=== PATIENT | female | born 1955 | race Hispanic/Latino ===

== ENCOUNTER 2016-12-17 17:48 | Observation (INO) | payer OTHER ==
[2016-12-17 17:51] VITALS: BMI 24.3
--- NOTE | 2016-12-17 18:06 | ED PDOC ---
Arrival/HPI - General Chief Complaint: Shortness Of Breath Time Seen by Provider: 12/17/16 17:52 Historian: Patient, EMS - History of Present Illness Narrative History of Present Illness (Text): 12/17/16 18:01 61 year old female with a past medical history that includes hypertension, hypothyroidsim, and asthma presents to the emergency department with left sided chest pain associated with shortness of breath and nausea while standing at the bus stop prior to arrival. EMS reports patient told them she was dehydrated after standing at the bus stop for an hour and took one treatment of her inhaler. Patient also reports dizziness and a "weird" sensation in her left arm. Denies cough, fever, urinary incontinence, leg pain, or other symptoms. PMD: Dr. Lorie Mckinnye Dehydration Plant Operator: Dr. Medhat Snow Neurologist: Dr. Evelyn Welch 12/17/16 18:51 After interviewing the patient again, she states that her chest pain has been there for some time now, she thinks maybe Sunday. She also states she has a left sided headache and that the arm sensation is like pins and needles. She also added that she has the same pins and needles sensation to her left leg. No weakness. No trouble speaking or visual changes. She has seen Dr. Welch, neurology, recently since these symptoms started and she got an MRI. She doesn' t know the results yet. Time/Duration: Prior to Arrival Symptom Onset: Sudden Symptom Course: Unchanged Modifying Factors (Text): None Context: Standing Associated Symptoms (Text): Nausea, shortness of breath, dizziness, left arm weird sensation Past Medical History - Provider Review Nursing Documentation Reviewed: Yes - Infectious Disease Hx of Infectious Diseases: None - Reproductive Menopause: Yes - Cardiac Hx Hypertension: Yes - Pulmonary Hx Asthma: Yes - Endocrine/Metabolic Hx Hypothyroidism: Yes - Hematological/Oncological Other/Comment: thrombocytopenia - Psychiatric Hx Substance Use: No - Anesthesia Hx Anesthesia: No Hx Anesthesia Reactions: No Hx Malignant Hyperthermia: No Family/Social History - Physician Review Nursing Documentation Reviewed: Yes Family/Social History: Unknown Family HX Smoking Status: Never Smoked Hx Alcohol Use: No Hx Substance Use: No Allergies/Home Meds Allergies/Adverse Reactions: Allergies aspirin Adverse Reaction (Verified 12/17/16 18:01) RASH bleeding codeine Adverse Reaction (Verified 12/17/16 17:55) RASH iodine Adverse Reaction (Verified 12/17/16 17:57) RASH latex Adverse Reaction (Verified 12/17/16 18:01) SWELLING shellfish derived Adverse Reaction (Verified 12/17/16 17:57) RASH tetracycline Adverse Reaction (Verified 12/17/16 17:57) RASH avolox Adverse Reaction (Uncoded 12/17/16 17:56) RASH Review of Systems - Physician Review All systems were reviewed & negative as marked: Yes - Review of Systems Eyes: absent: Vision Changes Respiratory: SOB Cardiovascular: Chest Pain (left sided). absent: Calf Pain Gastrointestinal: Nausea Neurological: Dizziness, Other (Left arm "weird" sensation) Physical Exam Vital Signs Reviewed: Yes Vital Signs Temp Pulse Resp BP Pulse Ox 12/17/16 19:35 70 18 119/74 97 12/17/16 18:47 62 14 119/74 100 12/17/16 18:07 80 18 127/69 98 12/17/16 18:02 99.9 F H 71 20 115/84 100 12/17/16 18:00 18 Temperature: Afebrile Blood Pressure: Normal Pulse: Regular Respiratory Rate: Normal Appearance: Positive for: Well-Appearing, Non-Toxic, Comfortable Pain Distress: None Mental Status: Positive for: Alert and Oriented X 3 - Systems Exam Head: Present: Atraumatic, Normocephalic Pupils: Present: PERRL Extroacular Muscles: Present: EOMI Conjunctiva: Present: Normal Mouth: Present: Moist Mucous Membranes Neck: Present: Normal Range of Motion Respiratory/Chest: Present: Clear to Auscultation, Good Air Exchange, Tender to Palpation (left chest wall; no rash or ecchymosis). No: Respiratory Distress, Accessory Muscle Use Cardiovascular: Present: Regular Rate and Rhythm, Normal S1, S2. No: Murmurs Abdomen: Present: Normal Bowel Sounds. No: Tenderness, Distention, Peritoneal Signs Back: Present: Normal Inspection Upper Extremity: Present: Normal Inspection. No: Cyanosis, Edema Lower Extremity: Present: Normal Inspection. No: Edema Neurological: Present: GCS=15, CN II-XII Intact, Speech Normal, Motor Func Grossly Intact, Normal Cerebellar Funct, Norm Deep Tendon Reflexes, Memory Normal. No: Normal Sensory Function (left arm and leg decreased sensation) Skin: Present: Warm, Dry, Normal Color. No: Rashes Psychiatric: Present: Alert, Oriented x 3, Normal Insight, Normal Concentration Medical Decision Making ED Course and Treatment: Impression: 61 year old female with a past medical history that includes hypertension, hypothyroidsim, and asthma presents to the emergency department with left sided headache, left chest pain associated with shortness of breath, left arm/leg tingling sensation and nausea Differential Diagnosis included but are not limited to: TIA vs CVA, Chest pain r /o ACS, Anxiety, Dehydration Plan: -- EKG, CXR -- Nitroglycerin -- Labs -- Reassess and disposition Progress Notes: 12/17/16 19:16 Nitroglyerin did not help her symptoms. She says with aspirin she gets internal bleeding. Morphine IV ordered for pain. CT Head was added. Symptoms have been presents since Sunday and perhaps longer because patient is unsure of symptom on set. - Lab Interpretations Lab Results: 12/17/16 17:45 12/17/16 17:45 Lab Results 12/17/16 18:16: D-Dimer, Quantitative 0.25 12/17/16 18:05: POC Glucose (mg/dL) 193 H 12/17/16 17:45: WBC 9.1, RBC 4.69, Hgb 13.7, Hct 38.9, MCV 82.9, MCH 29.2, MCHC 35.2, RDW 13.1, Plt Count 197, MPV 10.9, Gran % 68.9 H, Lymph % (Auto) 25.3, [place] % (Auto) 5.3, Eos % (Auto) 0.3 L, Baso % (Auto) 0.2, Gran # 6.27, Lymph # 2.3, [place] # 0.5, Eos # 0.0, Baso # 0.02, PT 11.0, INR 1.02, APTT 23.2 L, Sodium 131 L, Potassium 3.4 L, Chloride 93 L, Carbon Dioxide 23, Anion Gap 18, BUN 22 H , Creatinine 1.2, Est GFR ( Amer) 55, Est GFR (Non-Af Amer) 46, Random Glucose 162 H, Calcium 9.6, Magnesium 1.8, Total Bilirubin 0.7, AST 19, ALT 32, Alkaline Phosphatase 100, Lactate Dehydrogenase 444, Total Creatine Kinase 86, Troponin I < 0.01, NT-Pro-B Natriuret Pep 78.9, Total Protein 8.1, Albumin 4.3, Globulin 3.9, Albumin/Globulin Ratio 1.1 - RAD Interpretation Narrative RAD Interpretations (Text): EXAM: CT Head Without Intravenous Contrast FINDINGS: Brain: Periventricular hypoattenuation is likely related to small vessel disease. No hemorrhage. No edema. Ventricles: Unremarkable. No ventriculomegaly. Bones/joints: Unremarkable. No acute fracture. Soft tissues: Unremarkable. Sinuses: partial opacification of the right maxillary sinus and ethmoid sinus. Mastoid air cells: Unremarkable as visualized. No mastoid effusion. IMPRESSION: No acute findings. Dictated and Authenticated by: Antonia Murrell MD 12/17/2016 7:16 PM Eastern Time ([place] & [place]) Radiology Orders: 12/17/16 17:58 CHEST PORTABLE [RAD] Stat 12/17/16 18:23 HEAD W/O CONTRAST [CT] Stat Financial Legal Assistant: Linux Server Engineer - EKG Interpretation EKG Interpretation (Text): EKG shows NSR at 78 BPM with PAC's; No prior for comparison Interpreted by ED Physician: Yes Type: 12 lead EKG - Medication Orders Current Medication Orders: Discontinued Medications Morphine Sulfate (Morphine) 4 mg IVP STAT STA Stop: 12/17/16 18:24 Last Admin: 12/17/16 18:38 Dose: 4 MG MAR Pain Assessment Document 12/17/16 18:38 SRE (Rec: 12/17/16 18:38 SRE [id number]) Pain Reassessment Is this a pain reassessment? Yes Sleep Is patient sleeping during reassessment? No Presence of Pain Presence of Pain Yes Pain Scale Used Pain Scale Used Numeric Location Pain Location Body Site Chest Description Description Constant IVP Administration Document 12/17/16 18:38 SRE (Rec: 12/17/16 18:38 SRE [id number]) Charges for Administration # of IVP Administrations 1 Nitroglycerin (Nitrostat Sl Tab) 0.4 mg SL STAT STA Stop: 12/17/16 17:59 Last Admin: 12/17/16 18:05 Dose: 0.4 MG Potassium Chloride (K-Dur 20 Meq Er Tab) 40 meq PO STAT STA Stop: 12/17/16 18:41 Last Admin: 12/17/16 19:40 Dose: 40 MEQ NIHSS Scale ([place]) Time Performed: 17:52 - How Severe is the Stoke Baseline Level of Consciousness: 0=Alert LOC to Questions: 0=Both comments correct LOC to commands: 0=Obeys both correctly Best Gaze: 0=Normal Visual: 0=No visual loss Facial: 0=Normal Motor Arm - Left: 0=No drift Motor Arm - Right: 0=No drift Motor Leg - Left: 0=No drift Motor Leg - Right: 0=No drift Limb Ataxia: 0=Absent Sensory: 1=Mild to moderate loss Best Language: 0=No aphasia Dysarthia: 0=Normal articulation Extinction & Inattention (Neglect): 0=Normal, no object Score: 1 Risk Level: Minor Stroke Risk rTPA Inclusion/Exclusion - Refusal of Treatment Patient Refused Treatment: No - Inclusion Criteria for Altepase Patient is 18 years or Older: Yes The Clinical Diagnosis of Ischemic Stroke That is Causing a Potentially Disabling Neurological Deficit: Yes Time of Onset is Well Established to be Less Than 270 Minute Before Treatment Would Begin: No Risk/Benefit Discussed With Patient/Family Member Present: No - Scribe Statement The provider has reviewed the documentation as recorded by the Berenice Valentine Provider Scribe Attestation: All medical record entries made by the Berenice were at my direction and personally dictated by me. I have reviewed the chart and agree that the record accurately reflects my personal performance of the history, physical exam, medical decision making, and the department course for this patient. I have also personally directed, reviewed, and agree with the discharge instructions and disposition. Disposition/Present on Arrival - Present on Arrival Any Indicators Present on Arrival: No History of DVT/PE: No History of Uncontrolled Diabetes: No Urinary Catheter: No History of Decub. Ulcer: No History Surgical Site Infection Following: None - Disposition Have Diagnosis and Disposition been Completed?: Yes Diagnosis: Chest pain, Numbness and tingling sensation of skin Disposition Time: 20:01 Patient Plan: Observation Condition: FAIR
[2016-12-17 18:13] LABS: ADD MANUAL DIFF? NO
[2016-12-17 18:16] LABS: BASO # 0.02 K/mm3 (0.0-2.0); BASO % 0.2 % (0.0-3.0); EOS % 0.3 % (1.5-5.0); GRAN # 6.27 (1.4-6.5); GRAN % 68.9 % (50.0-68.0); HEMATOCRIT 38.9 % (36.0-48.0); LYMPH # 2.3 (1.2-3.4); LYMPH % 25.3 % (22.0-35.0); MEAN CELL VOLUME 82.9 fL (80.0-105.0); MEAN CORPUSCULAR HEMOGLOBIN 29.2 pg (25.0-35.0); MEAN CORPUSCULAR HGB CONC 35.2 g/dl (31.0-37.0); MEAN PLATELET VOLUME 10.9 fl (7.0-11.0); MONO # 0.5 (0.1-0.6); MONO % 5.3 % (1.0-6.0); PLATELET COUNT 197 10^3/uL (120.0-450.0); RED CELL DISTRIBUTION WIDTH 13.1 % (11.5-14.5); WHITE BLOOD COUNT 9.1 10^3/ul (4.5-11.0)
[2016-12-17] MEDS ORDERED: Morphine 4 mg/ml ISec IVP STA (18:23)
[2016-12-17 18:25] LABS: ALB/GLOB RATIO 1.1 (1.1-1.8); ALKALINE PHOSPHATASE 100 U/L (38-133); ALT/SGPT 32 U/L (7-56); AST/SGOT 19 U/L (15-39); BILIRUBIN,TOTAL 0.7 mg/dL (0.2-1.3); BLOOD UREA NITROGEN 22 mg/dL (7-21); CALCIUM 9.6 mg/dL (8.4-10.5); CARBON DIOXIDE 23 mmol/L (21-33); CHLORIDE 93 mmol/L (98-107); GFR AFRICAN-AMERICAN 55; GLUCOSE,RANDOM 162 mg/dL (70-110); MAGNESIUM 1.8 mg/dL (1.7-2.2); POTASSIUM 3.4 mmol/L (3.6-5.0); SODIUM 131 mmol/L (132-148); TOTAL PROTEIN 8.1 g/dL (5.8-8.3)
[2016-12-17 18:28] LABS: INR 1.02 (0.93-1.08); PARTIAL THROMBOPLASTIN TIME 23.2 Seconds (23.7-30.8)
[2016-12-17 18:39] LABS: TROPONIN I < 0.01 ng/mL
[2016-12-17] MEDS ORDERED: Potassium Chloride 20 mEq ER Tab PO STA (18:40)
[2016-12-17 20:26] LABS: URINE BILIRUBIN NEGATIVE (NEGATIVE); URINE BLOOD SMALL (NEGATIVE); URINE GLUCOSE (UA) NEGATIVE (NEGATIVE); URINE KETONE NEGATIVE (NEGATIVE); URINE LEUKOCYTE ESTERASE LARGE Leu/uL (NEGATIVE); URINE PROTEIN NEGATIVE mg/dL (<30 mg/dL); URINE UROBILINOGEN 0.2 E.U./dL (<1 E.U./dL)
[2016-12-17 20:28] LABS: URINE APPEARANCE CLOUDY (CLEAR); URINE COLOR YELLOW (YELLOW)
[2016-12-17 20:37] LABS: URINE RBC 0 - 2 /hpf (0-2)
[2016-12-17 20:38] LABS: URINE BACTERIA MANY (NEG); URINE WBC TNTC /hpf (0-6)
[2016-12-17] MEDS ORDERED: Albuterol-Ipratrop 3 mg / 0.5 (3 ml) UD IH PRN (20:52)
--- NOTE | 2016-12-17 21:10 | CP.PCM.HP ---
<Stephanie Hein - Last Filed: 12/17/16 22:33> History of Present Illness - History of Present Illness History of Present Illness: 61 F with PMHx of HTN, hypothyroidism, asthma, vertigo, levoscoliosis, and fibroids presents with complaints of left sided chest pains, left sided headache and left sided paresthesia. Pt is a poor historian. Pt states that this morning while showering, she started to feel chest tightness - similair to when she has asthma attacks, worsening of her left sided headache, left sided paresthesia and associated sob and dizziness. However, after taking her nebulizer treatments her symptoms slowly improved. Pt then stated that this evening at approx 5 pm, she expereinced another episode of similar symptoms while waiting for the bus outside however with greater intensity than this morning, at which point she called the ambulance and arrived to [facility]. Pt states that for the past month she has been experiencing a left sided headache that fluctuates in intensity, however is constant. Pt was recently seen by her neurologist for which an MRI was completed on 12/13/16, pending results. Pt also states that she has been experiencing her chest pain for the past couple of weeks, shifting in position and pressing on the chest wall exacerbates symptoms. She denied any trauma. She has recently been flying back and forth from [place], last trip in the middle of november. At the time of examination pt denied fever, chills, blurry vision, diplopia, weakness, dizziness, sob, palpitations, abdominal pains, n/v/d/c or urinary symptoms. Pt admitted to left sided headache and left sided chest pain, however with a lesser intensity than earlier. PMHx: HTN, hypothyroidism, asthma, vertigo, levoscoliosis, and fibroids PSHx: Hysterectomy SHx: Denied tobacco/etoh/illicit drug abuse, lives in [facility], menopause Family Hx: Mother: Colon ca, sister: stroke father: Alzheimer Meds: Ventolin, amlodipine, telesartan, synthroid, Allergies: asa, codeine, iodine, shellfish, tetracycline, avelox PMD: Lorie Núñez Senior Linux Administrator: Dr. Medhat Snow Neurologist: Dr. Evelyn Welch Patternmaker Apprentice Wood: Dr. Nash Present on Admission - Present on Admission Any Indicators Present on Admission: No History of DVT/PE: No History of Uncontrolled Diabetes: No Urinary Catheter: No Decubitus Ulcer Present: No Review of Systems - Review of Systems Review of Systems: as per HPI otherwise negative Past Patient History - Infectious Disease Hx of Infectious Diseases: None - Past Social History Smoking Status: Never Smoked - CARDIAC Hx Hypertension: Yes - PULMONARY Hx Asthma: Yes - ENDOCRINE/METABOLIC Hx Hypothyroidism: Yes - HEMATOLOGICAL/ONCOLOGICAL Other/Comment: thrombocytopenia - PSYCHIATRIC Hx Substance Use: No - SURGICAL HISTORY Hx Surgeries: No Hx Hysterectomy: Yes - ANESTHESIA Hx Anesthesia: No Hx Anesthesia Reactions: No Hx Malignant Hyperthermia: No Meds Allergies/Adverse Reactions: Allergies Allergy/AdvReac Type Severity Reaction Status Date / Time aspirin AdvReac RASH Verified 12/17/16 18:01 codeine AdvReac RASH Verified 12/17/16 17:55 iodine AdvReac RASH Verified 12/17/16 17:57 latex AdvReac SWELLING Verified 12/17/16 18:01 shellfish derived AdvReac RASH Verified 12/17/16 17:57 tetracycline AdvReac RASH Verified 12/17/16 17:57 avolox AdvReac RASH Uncoded 12/17/16 17:56 Physical Exam - Constitutional Appears: Well, No Acute Distress - Head Exam Head Exam: ATRAUMATIC - Eye Exam Eye Exam: EOMI, Normal appearance, PERRL Pupil Exam: NORMAL ACCOMODATION, PERRL - ENT Exam ENT Exam: Mucous Membranes Moist, Normal Exam - Neck Exam Neck exam: Positive for: Normal Inspection - Respiratory Exam Respiratory Exam: Chest Wall Tenderness (left sided), Clear to Auscultation Bilateral, NORMAL BREATHING PATTERN - Cardiovascular Exam Cardiovascular Exam: REGULAR RHYTHM, +S1, +S2 - GI/Abdominal Exam GI & Abdominal Exam: Normal Bowel Sounds, Soft, Tenderness (suprapubic) - Extremities Exam Extremities exam: Positive for: normal inspection, pedal pulses present - Back Exam Back exam: NORMAL INSPECTION - Neurological Exam Neurological exam: Alert, CN II-XII Intact, Normal Gait, Oriented x3, Reflexes Normal - Psychiatric Exam Psychiatric exam: Normal Affect, Normal Mood - Skin Skin Exam: Dry, Intact, Normal Color, Warm Results - Vital Signs Recent Vital Signs: Last Vital Signs Temp 99.9 F H 12/17/16 18:02 Pulse 70 12/17/16 19:35 Resp 18 12/17/16 19:35 BP 119/74 12/17/16 19:35 Pulse Ox 97 12/17/16 19:35 - Labs Result Diagrams: 12/17/16 17:45 12/17/16 17:45 Labs: Laboratory Results - last 24 hr 12/17/16 12/17/16 12/17/16 17:45 18:05 18:16 WBC 9.1 RBC 4.69 Hgb 13.7 Hct 38.9 MCV 82.9 MCH 29.2 MCHC 35.2 RDW 13.1 Plt Count 197 MPV 10.9 Gran % 68.9 H Lymph % (Auto) 25.3 [place] % (Auto) 5.3 Eos % (Auto) 0.3 L Baso % (Auto) 0.2 Gran # 6.27 Lymph # 2.3 [place] # 0.5 Eos # 0.0 Baso # 0.02 PT 11.0 INR 1.02 APTT 23.2 L D-Dimer, Quantitative 0.25 Sodium 131 L Potassium 3.4 L Chloride 93 L Carbon Dioxide 23 Anion Gap 18 BUN 22 H Creatinine 1.2 Est GFR ( Amer) 55 Est GFR (Non-Af Amer) 46 POC Glucose (mg/dL) 193 H Random Glucose 162 H Calcium 9.6 Magnesium 1.8 Total Bilirubin 0.7 AST 19 ALT 32 Alkaline Phosphatase 100 Lactate Dehydrogenase 444 Total Creatine Kinase 86 Troponin I < 0.01 NT-Pro-B Natriuret Pep 78.9 Total Protein 8.1 Albumin 4.3 Globulin 3.9 Albumin/Globulin Ratio 1.1 Urine Color Urine Appearance Urine pH Ur Specific [place] Urine Protein Urine Glucose (UA) Urine Ketones Urine Blood Urine Nitrate Urine Bilirubin Urine Urobilinogen Ur Leukocyte Esterase Urine RBC Urine WBC Ur Epithelial Cells Urine Bacteria 12/17/16 20:10 WBC RBC Hgb Hct MCV MCH MCHC RDW Plt Count MPV Gran % Lymph % (Auto) [place] % (Auto) Eos % (Auto) Baso % (Auto) Gran # Lymph # [place] # Eos # Baso # PT INR APTT D-Dimer, Quantitative Sodium Potassium Chloride Carbon Dioxide Anion Gap BUN Creatinine Est GFR ( Amer) Est GFR (Non-Af Amer) POC Glucose (mg/dL) Random Glucose Calcium Magnesium Total Bilirubin AST ALT Alkaline Phosphatase Lactate Dehydrogenase Total Creatine Kinase Troponin I NT-Pro-B Natriuret Pep Total Protein Albumin Globulin Albumin/Globulin Ratio Urine Color Yellow Urine Appearance Cloudy Urine pH 6.0 Ur Specific [place] 1.025 Urine Protein Negative Urine Glucose (UA) Negative Urine Ketones Negative Urine Blood Small H Urine Nitrate Positive H Urine Bilirubin Negative Urine Urobilinogen 0.2 Ur Leukocyte Esterase Large H Urine RBC 0 - 2 Urine WBC Tntc Ur Epithelial Cells 3 - 4 Urine Bacteria Many Assessment & Plan - Assessment and Plan (Free Text) Assessment: 61 F with PMHx hypothyroidism, HTN, and asthma presenting with complaints of left sided paresthesias, left sided headache, left sided chest pains. Admitted to tele obs to r/o acs vs tia vs cva. 1. Left sided chest pain - r/o acs - Trop negative x1, EKG: NSR w/ PACs, serial trops and serial EKGs - TTP, Rib Xray - nitro in ED without relief, asa allergy, morphine improved symptom intensity - Cardiology Consulted, Dr. Zambrano 2. Left sided Gan/Paresthesia - no neurological deficits - MRI 12/13/16, fu results - CTH negative - Neurology consulted, Dr. Connors - Neurocheck q4 3. Asthma - Currently stable - Continue home meds - Duonebs q6 prn - no wheezing on exam 4. UTI - UCx pending - Bactrim - Continue to monitor 5. HTN - Currently stable - continue home meds (norvasc 5mg BID, Telesartan 80mg Daily?) - continue to monitor 6. Hypothyroidism - TSH - Continue home meds (synthroid 88mcg?) 7. GI DVT ppx seen reviewed and discussed with attending <Onur Singh - Last Filed: 12/18/16 04:21> Results - Vital Signs Recent Vital Signs: Last Vital Signs Temp 98 F 12/18/16 00:01 Pulse 53 L 12/18/16 02:00 Resp 18 12/18/16 00:01 BP 143/87 12/18/16 00:01 Pulse Ox 98 12/18/16 00:01 - Labs Result Diagrams: 12/17/16 17:45 12/17/16 17:45 Labs: Laboratory Results - last 24 hr 12/17/16 12/18/16 12/18/16 20:10 00:25 02:19 POC Glucose (mg/dL) 110 Troponin I < 0.01 Urine Color Yellow Urine Appearance Cloudy Urine pH 6.0 Ur Specific [place] 1.025 Urine Protein Negative Urine Glucose (UA) Negative Urine Ketones Negative Urine Blood Small H Urine Nitrate Positive H Urine Bilirubin Negative Urine Urobilinogen 0.2 Ur Leukocyte Esterase Large H Urine RBC 0 - 2 Urine WBC Tntc Ur Epithelial Cells 3 - 4 Urine Bacteria Many Attending/Attestation - Attestation I have personally seen and examined this patient.: Yes I have fully participated in the care of the patient.: Yes I have reviewed all pertinent clinical information: Yes Notes (Text): 12/18/16 04:20 Patient was seen with bio medical technician when she was in bed # 4 in the ER. Agree with history, physical examination, assessment and plan. Pertinent medical record was reviewed.
[2016-12-17] MEDS: Sodium Chloride 0.9% 1,000 ML IV SCH (21:27)
[2016-12-17] MEDS ORDERED: Oxycodone/Acetaminophen 5/325 mg Tab PO PRN (21:29)
[2016-12-17] MEDS ORDERED: Tmp-Smz 800 mg-160 mg DS Tab PO SCH (22:00)
[2016-12-18 06:36] LABS: ADD MANUAL DIFF? NO
[2016-12-18 06:54] LABS: BASO # 0.02 K/mm3 (0.0-2.0); BASO % 0.3 % (0.0-3.0); EOS # 0.1 (0.0-0.7); EOS % 1.6 % (1.5-5.0); GRAN # 3.53 (1.4-6.5); GRAN % 61.6 % (50.0-68.0); HEMATOCRIT 36.3 % (36.0-48.0); LYMPH # 1.5 (1.2-3.4); LYMPH % 25.5 % (22.0-35.0); MEAN CORPUSCULAR HEMOGLOBIN 28.9 pg (25.0-35.0); MEAN CORPUSCULAR HGB CONC 34.4 g/dl (31.0-37.0); MEAN PLATELET VOLUME 11.2 fl (7.0-11.0); MONO # 0.6 (0.1-0.6); PLATELET COUNT 182 10^3/uL (120.0-450.0); RED CELL DISTRIBUTION WIDTH 13.2 % (11.5-14.5); WHITE BLOOD COUNT 5.7 10^3/ul (4.5-11.0)
[2016-12-18 06:55] LABS: ALB/GLOB RATIO 1.1 (1.1-1.8); ALKALINE PHOSPHATASE 89 U/L (38-133); ALT/SGPT 27 U/L (7-56); AST/SGOT 18 U/L (15-39); BILIRUBIN,TOTAL 0.7 mg/dL (0.2-1.3); BLOOD UREA NITROGEN 13 mg/dL (7-21); CALCIUM 8.8 mg/dL (8.4-10.5); CARBON DIOXIDE 27 mmol/L (21-33); CHLORIDE 102 mmol/L (98-107); CHOLESTEROL 195 mg/dL (130-200); GFR AFRICAN-AMERICAN > 60; GLUCOSE,RANDOM 88 mg/dL (70-110); POTASSIUM 3.7 mmol/L (3.6-5.0); SODIUM 135 mmol/L (132-148)
[2016-12-18 07:04] LABS: TROPONIN I < 0.01 ng/mL
--- NOTE | 2016-12-18 07:38 | RAD ---
HISTORY: chest pain COMPARISON: No prior study available for comparison. FINDINGS: LUNGS: No active pulmonary disease. PLEURA: No significant pleural effusion identified, no pneumothorax apparent. CARDIOVASCULAR: Normal. OSSEOUS STRUCTURES: There appears be mild dextroscoliosis centered in the mid thoracic region VISUALIZED UPPER ABDOMEN: Normal. OTHER FINDINGS: None. IMPRESSION: No active disease.
[2016-12-18] MEDS: Pantoprazole 40 mg EC Tab PO SCH ×2 (08:22→17:25)
[2016-12-18] MEDS: Sodium Chloride 0.9% 1,000 ML IV SCH ×2 (08:24→21:56)
--- NOTE | 2016-12-18 08:25 | CT ---
PROCEDURE: CT HEAD WITHOUT CONTRAST. HISTORY: headache r/o ich r/o cva COMPARISON: None available. TECHNIQUE: Axial computed tomography images were obtained through the head/brain without intravenous contrast. Radiation dose: Total exam DLP = 789.14 mGy-cm. This CT exam was performed using one or more of the following dose reduction techniques: Automated exposure control, adjustment of the mA and/or kV according to patient size, and/or use of iterative reconstruction technique. FINDINGS: HEMORRHAGE: No acute parenchymal, subarachnoid or extra-axial hemorrhage. BRAIN: Mild chronic periventricular white matter ischemic changes are present most pronounced and conspicuous in the left the perifrontal horn region. . VENTRICLES: Unremarkable. No hydrocephalus. CALVARIUM: Unremarkable. PARANASAL SINUSES: Minor mucosal thickening seen within several ethmoid air cells left greater than chief right MASTOID AIR CELLS: Moderate-sized mucous retention cyst right maxillary antrum. OTHER FINDINGS: None. IMPRESSION: Mild periventricular white matter as described.
[2016-12-18] MEDS ORDERED: Morphine 2 mg/ml ISec IVP PRN (08:54)
[2016-12-18 08:56] LABS: LIPASE 59 U/L (23-300)
[2016-12-18] MEDS: cefTRIAXone 1 gm 100 ML IVPB SCH (09:32)
[2016-12-18] MEDS: Enoxaparin 40 mg Syringe SC SCH (09:33)
--- NOTE | 2016-12-18 09:51 | RAD ---
PROCEDURE: Left ribs HISTORY: rib pain COMPARISON: TECHNIQUE: Four views FINDINGS: There is no evidence of displaced rib fracture or pneumothorax IMPRESSION: Negative study
--- NOTE | 2016-12-18 09:57 | CON ---
DATE: 12/18/2016 INDICATIONS: Chest pain. HISTORY OF PRESENT ILLNESS: This is a 61-year-old woman who presented yesterday to the Emergency Room with chest pain as well as left-sided headache and discomfort in her left arm. The symptoms are variable, have occurred somewhat chronically but worse yesterday. Today she describes a milder form of left-sided chest pain, pointing to the area of her left breast. She has seen a retail marketing coordinator for this in the past. Apparently, workup was unremarkable. She also has asthma with intermittent use of inhalers for asthmatic type symptoms. She has also complained of headache and seen a neurologist recently, and an MRI was done - results are pending. This morning, she feels better but still some residual left-sided chest pain. Three sets of enzymes are negative. Her initial EKG was benign. There is no orthopnea, PND, syncope, presyncope, lightheadedness, dizziness, vertigo, palpitation, edema, claudication, fever, chills, rigor, sweats, cough, sputum production, hemoptysis, abdominal pain, nausea, vomiting, diarrhea, constipation, melena. PAST MEDICAL HISTORY: Notable for hypertension, hypothyroidism, asthma, fibroids and a hysterectomy. There is no history of rheumatic fever, myocardial infarction, angina, congestive heart failure, arrhythmia, stroke, TIA , gout, diabetes. MEDICATIONS: At the time of admission included Ventolin, amlodipine, Synthroid , Ambien, hydralazine as needed, Norvasc, vitamin D, Xanax, and albuterol. ALLERGIES: SHE NOTES AN ALLERGY TO ASPIRIN AND CODEINE WELL IODINE, LASIX , MOXIFLOXACIN, TETRACYCLINE, AVELOX. FAMILY HISTORY: Notable for cancer and stroke. SOCIAL HISTORY: She does not smoke cigarettes or drink alcohol. She is ambulatory. PHYSICAL EXAMINATION: GENERAL: She is a well-developed woman lying in bed on telemetry, in no acute distress. VITAL SIGNS: Notable for sinus rhythm to sinus bradycardia at 53-62 beats per minute, afebrile, blood pressure 114/65, respirations 18, O2 sat 96-98% on room air. HEENT: Reveals no neck vein distention, thyromegaly, or carotid bruits. Mucous membranes moist. Conjunctivae are pink. NECK: Supple. CHEST: Lung etienne clear. HEART: Revealed normal first and second heart sounds. ABDOMEN: Soft, bowel sounds present. No mass, organomegaly, tenderness, rebound, guarding, CVA tenderness or palpable abdominal aortic aneurysm. EXTREMITIES: Revealed no cyanosis, clubbing, or edema. NEUROLOGIC: She is awake, alert and oriented. SKIN: Warm and dry. No rash or cellulitis. PSYCHIATRIC: Normal as to mood and affect. LABORATORY AND IMAGING: A chest x-ray, a portable study, revealed no active disease. EKG demonstrates regular sinus rhythm, APC; no acute changes. CT scan of the head reveals mild periventricular white matter ischemic changes as described. Rib x-rays were done but not yet interpreted. CBC is unremarkable. PT, INR, PTT unremarkable. D-dimer 0.25. Initial sodium 131, repeat 135; potassium 3.4, repeat 3.7. BUN and creatinine unremarkable. Blood sugars in the 110-193 range. Magnesium, LFTs unremarkable. CK 86. Three troponins negative. Total cholesterol 195, triglycerides 67, LDL 95, HDL 70. Lipase 59. TSH normal. Urinalysis is noted. IMPRESSION: The patient is a 61-year-old woman with asthma, allergic history, and admission for atypical left sided chest pains somewhat chronic in nature, as well as left-sided headache also somewhat chronic in nature. She describes frequent episodes of shortness of breath requiring use of inhalers. She has seen a retail marketing coordinator; the details of that workup are not available. She has had a recent neurologic evaluation by Dr. Welch. Results of an MRI done are pending. Her initial EKG was benign. Three sets of cardiac enzymes are negative. She can be out of bed. She can ambulate. She can be considered for a nuclear stress test if this has not been done recently, and it can be done on an outpatient basis. I will order an echocardiogram. I will repeat her EKG this morning. We await the result of the rib x-ray's interpretation. She will be seen by Dr. Connors. She is getting antibiotics, respiratory treatment, IV fluids, morphine, Lovenox, and KCl. I will follow along with you. I will make additional recommendations based on her clinical course. Tito Zambrano MD cc: [id number] TT: 12/18/2016 09:57:28 Confirmation # [id number] Dictation # [id number] alex HER
--- NOTE | 2016-12-18 10:05 | CARD ---
APPROVED REPORT EKG Measurement Heart [id number] <Conclusion> Normal sinus rhythm Normal ECG
--- NOTE | 2016-12-18 10:16 | CARD ---
APPROVED REPORT EKG Measurement Heart [id number] <Conclusion> Sinus rhythm with short [place] with premature atrial complexes Otherwise normal ECG
--- NOTE | 2016-12-18 11:36 | CP.PCM.PN ---
<James Shaikh - Last Filed: 12/18/16 11:37> Subjective - Date & Time of Evaluation Date of Evaluation: 12/18/16 Time of Evaluation: 11:38 - Subjective Subjective: Hospitalist note Pt s&e. Pt feels better. Residual epigastric/rib pain/chest pain on the L side. Denies F/C/N/V/D. MAGDALENO improved. L paresthesia improved. Objective - Vital Signs/Intake and Output Vital Signs (last 24 hours): Temp Pulse Resp BP Pulse Ox 97.3 F L 56 L 18 114/65 96 12/18/16 05:58 12/18/16 05:58 12/18/16 05:58 12/18/16 05:58 12/18/16 05:58 Intake and Output: 12/18/16 12/18/16 06:59 18:59 Intake Total 1140 Output Total 0 Balance 1140 - Medications Medications: Current Medications Albuterol/Ipratropium (Duoneb 3 Mg/0.5 Mg (3 Ml) Ud) 3 ml IH [id number] PRN PRN Reason: Shortness of Breath Enoxaparin Sodium (Lovenox) 40 mg SC DAILY [facility] PRN Reason: Protocol Last Admin: 12/18/16 09:33 Dose: 40 mg Sodium Chloride (Sodium Chloride 0.9%) 1,000 mls @ 100 mls/hr IV .Q10H [facility] Last Admin: 12/18/16 08:24 Dose: 100 mls/hr Ceftriaxone Sodium (Rocephin 1 Gram Ivpb) 100 mls @ 100 mls/hr IVPB DAILY [facility] PRN Reason: Protocol Last Admin: 12/18/16 09:32 Dose: 100 mls/hr Morphine Sulfate (Morphine) 2 mg IVP Q4H PRN PRN Reason: Pain, moderate (4-7) Oxycodone/Acetaminophen (Percocet 5/325 Mg Tab) 1 tab PO Q6H PRN PRN Reason: Pain, moderate (4-7) Stop: 12/20/16 21:30 Pantoprazole Sodium (Protonix Ec Tab) 40 mg PO 0730,1630 [facility] Last Admin: 12/18/16 08:22 Dose: 40 mg Zolpidem Tartrate (Ambien) 10 mg PO HS PRN; Protocol PRN Reason: Insomnia Last Admin: 12/18/16 00:16 Dose: 10 mg - Labs Labs: 12/18/16 06:30 12/18/16 06:30 PT 11.0 Seconds (9.9-11.8) 12/17/16 17:45 INR 1.02 (0.93-1.08) 12/17/16 17:45 APTT 23.2 Seconds (23.7-30.8) L 12/17/16 17:45 - Constitutional Appears: Well, No Acute Distress - Head Exam Head Exam: ATRAUMATIC, NORMAL INSPECTION, NORMOCEPHALIC - Eye Exam Eye Exam: EOMI, Normal appearance, PERRL Pupil Exam: NORMAL ACCOMODATION, PERRL - ENT Exam ENT Exam: Mucous Membranes Moist, Normal Exam - Neck Exam Neck Exam: Full ROM, Normal Inspection. absent: Lymphadenopathy - Respiratory Exam Respiratory Exam: Clear to Ausculation Bilateral, NORMAL BREATHING PATTERN - Cardiovascular Exam Cardiovascular Exam: REGULAR RHYTHM, +S1, +S2. absent: Murmur - GI/Abdominal Exam GI & Abdominal Exam: Soft, Tenderness, Normal Bowel Sounds. absent: Distended, Firm, Guarding - Extremities Exam Extremities Exam: Full ROM, Normal Capillary Refill, Normal Inspection. absent : Joint Swelling, Pedal Edema - Back Exam Back Exam: NORMAL INSPECTION - Neurological Exam Neurological Exam: Alert, Awake, CN II-XII Intact, Normal Gait, Oriented x3 - Psychiatric Exam Psychiatric exam: Normal Affect, Normal Mood - Skin Skin Exam: Dry, Intact, Normal Color, Warm Assessment and Plan - Assessment and Plan (Free Text) Assessment: 61 F with PMHx hypothyroidism, HTN, and asthma presenting with complaints of left sided paresthesias, left sided headache, left sided chest pains. Admitted to r/o acs vs tia vs cva. 1. Left sided chest pain - r/o acs - Trop negative x3, EKG: NSR w/ PACs, serial trops and serial EKGs - TTP, Rib Xray: no acute finding - nitro in ED without relief, asa allergy, morphine improved symptom intensity - Cardiology Consulted, Dr. Zambrano: recommeds out pt stress test 2. Left sided Magdaleno/Paresthesia - no neurological deficits - MRI 12/13/16, fu results - CTH negative - Neurology consulted, Dr. Connors - Neurocheck q4 3. Asthma - Currently stable - Continue home meds - Duonebs q6 prn - no wheezing on exam 4. UTI - UCx pending - Rocephine - Continue to monitor 5. HTN - Currently stable - continue home meds: norvasc 5mg BID, Valsartan - continue to monitor 6. Hypothyroidism - TSH - Continue home meds :synthroid 25 mcg 7. GI DVT ppx LVX seen reviewed and discussed with attending <Jessika Barney - Last Filed: 12/18/16 14:18> Objective - Vital Signs/Intake and Output Vital Signs (last 24 hours): Temp Pulse Resp BP Pulse Ox 98.1 F 63 14 141/84 96 12/18/16 12:00 12/18/16 12:00 12/18/16 12:00 12/18/16 12:00 12/18/16 05:58 - Medications Medications: Current Medications Albuterol/Ipratropium (Duoneb 3 Mg/0.5 Mg (3 Ml) Ud) 3 ml IH [id number] PRN PRN Reason: Shortness of Breath Amlodipine Besylate (Norvasc) 5 mg PO DAILY PRN PRN Reason: Systolic Blood Pressure Enoxaparin Sodium (Lovenox) 40 mg SC DAILY [facility] PRN Reason: Protocol Last Admin: 12/18/16 09:33 Dose: 40 mg Sodium Chloride (Sodium Chloride 0.9%) 1,000 mls @ 100 mls/hr IV .Q10H [facility] Last Admin: 12/18/16 08:24 Dose: 100 mls/hr Ceftriaxone Sodium (Rocephin 1 Gram Ivpb) 100 mls @ 100 mls/hr IVPB DAILY [facility] PRN Reason: Protocol Last Admin: 12/18/16 09:32 Dose: 100 mls/hr Levothyroxine Sodium (Synthroid) 25 mcg PO ACB [facility] Last Admin: 12/18/16 12:35 Dose: Not Given Morphine Sulfate (Morphine) 2 mg IVP Q4H PRN PRN Reason: Pain, moderate (4-7) Oxycodone/Acetaminophen (Percocet 5/325 Mg Tab) 1 tab PO Q6H PRN PRN Reason: Pain, moderate (4-7) Stop: 12/20/16 21:30 Pantoprazole Sodium (Protonix Ec Tab) 40 mg PO 0730,1630 [facility] Last Admin: 12/18/16 08:22 Dose: 40 mg Valsartan (Diovan) 320 mg PO DAILY PRN PRN Reason: Systolic Blood Pressure Zolpidem Tartrate (Ambien) 10 mg PO HS PRN; Protocol PRN Reason: Insomnia Last Admin: 12/18/16 00:16 Dose: 10 mg - Labs Labs: PT 11.0 Seconds (9.9-11.8) 12/17/16 17:45 INR 1.02 (0.93-1.08) 12/17/16 17:45 APTT 23.2 Seconds (23.7-30.8) L 12/17/16 17:45 Attending/Attestation - Attestation I have personally seen and examined this patient.: Yes I have fully participated in the care of the patient.: Yes I have reviewed all pertinent clinical information, including history, physical exam and plan: Yes Notes (Text): I have seen and examined patient at bedside. This is 61 year old female with history of hypothyroidism, HTN, asthma who got admitted for evaluation of left sided chest pain, paresthesias, headache and near syncope. Serial troponin are negative. EKG did not show any ischemic changes. Rib xray is negative. Echo is pending. Stress test as an outpatient recommended by changer fixer. Patient reported that yesterday she was outside and weather was warm, she was diaphoretic and started to develop chest pain, headache and paresthesias. Will do orthostatic VS. It appears that all this can be secondary to vasovagal episode. Patient had an MRI in Dr Lopez's office. Will order carotid ultrasound. Start rocephin for UTI. Continue antihypertensives and synthroid. Dr Jessika Barney
[2016-12-18] MEDS: Levothyroxine 25 MCG TAB PO SCH (12:35)
--- NOTE | 2016-12-18 17:35 | CON ---
DATE: 12/18/2016 CHIEF COMPLAINT: Left side paresthesias and headache. HISTORY OF PRESENT ILLNESS: This is a 61-year-old woman with past medical history of hypertension, h ypothyroidism, asthma, vertigo and scoliosis, who apparently came in with complaints of left-sided ch est pain, chest tightness. She has history of asthma. With left-sided headache, headache starting f rom the cape of the neck, radiating up to the left occipital area, radiating to the whole head, mostl y on the left side, diffuse pressure type associated with left arm paresthesias. She has neck tightn ess. She recently had an MRI of the cervical spine at [facility], which showed C2-C3 and C4-C5 disk bulges without any stenosis and C5-C6 left paracentral disk herniation impinging the left C6 ner ve root. Currently, her paresthesias are no longer and her headache is much better. She does yoga a nd she has been excising. She did planks, which kind of exacerbated her symptoms. Cardiology note re viewed and appreciated. Blood pressures are stable. No focal weakness in the extremities. No talley e in sense of vision, taste or smell. PAST MEDICAL HISTORY: Hypertension, hypothyroidism, asthma, vertigo, levoscoliosis, fibroids. PAST SURGICAL HISTORY: Hysterectomy. SOCIAL HISTORY: No illicit drug use, smoking, or ETOH abuse. MEDICATIONS: Reviewed via nurse reconciliation sheet. ALLERGIES: ALLERGIC TO ASPIRIN, CODEINE, IODINE, SHELLFISH, TETRACYCLINE, AVELOX. REVIEW OF SYSTEMS: A 14-point review of systems is negative except in the HPI. PHYSICAL EXAMINATION: VITAL SIGNS: Temperature 98.1, pulse rate 63, blood pressure 141/84, respiratory rate of 18, oxygen saturation 98% on room air. GENERAL: The patient is sitting up in bed in no acute distress. HEENT: Atraumatic, normocephalic. PERRLA. Extraocular muscles intact. NECK: Supple, no JVD, no adenopathy noted. LUNGS: Clear to auscultation. No adventitious sounds. HEART: S1, S2, normal rate and rhythm. No murmurs, rubs, or gallops. ABDOMEN: Soft, nontender, nondistended. Bowel sounds present. EXTREMITIES: No clubbing, no cyanosis. Peripheral pulses 2+ bilaterally. MUSCULOSKELETAL: Cervical neck tightness. NEUROLOGIC: The patient is alert. Oriented to person, place, month and year. Speech is fluent witho ut any errors. Cranial nerves II through XII are intact. Motor exam: Moves all extremities equally. No pronator drift seen. Sensory exam: Light touch, pinprick, proprioception, vibration intact. D TRs 2+ throughout. Coordination: Uswzgm-[id number]-dzzh intact. Gait is deferred for now. LABORATORY DATA: Sodium is 135, potassium , chloride of 102, carbon dioxide 27, BUN of 13, crea tinine 0.8. Random glucose 88. A1c is 5.8. ASSESSMENT AND PLAN: This is a 61-year-old woman with past medical history of hypothyroidism, asthma , vertigo, levoscoliosis, fibroids, history of hysterectomy, who came with left sided chest pain, aty pical with left side headaches right at the cape of the neck, radiating on the left side of the head, diffuse pressure type without any aura, associated with neck tightness radiating down the left arm w ith left-sided paresthesias, which has temporally resolved. Her symptoms are likely from left C5-C6 left paracentral disk herniation impinging the 6th nerve root, which is causing paresthesias down the left arm, exacerbated by certain exercises that she has been doing and with yoga. At this time, she also has cervicogenic headaches as well. At this time, recommend: 1. Outpatient physical therapy, for which she will follow up with me in the office. 2. We will do an EMG nerve conduction study of her upper extremities to assess for any acute radicul opathy. 3. We will recommend gabapentin 300 mg p.o. at bedtime for neuropathic pain relief and she will foll ow up in our office. She is clinically stable from my standpoint. Niles Connors MD cc: [id number] TT: 12/18/2016 17:34:55 Confirmation # [id number] Dictation # [id number]
--- NOTE | 2016-12-18 17:59 | US ---
PROCEDURE: Bilateral carotid artery duplex ultrasound HISTORY: Carotid stenosis syncope PHYSICIAN(S): Vipin Prasad MD. TECHNIQUE: Duplex sonography and color-flow Doppler were used to evaluate the carotid bifurcations and limited segments of the vertebral arteries bilaterally. FINDINGS: There is mild smooth hypoechoic plaque noted at the carotid bifurcations bilaterally. The peak systolic velocity in the proximal right internal carotid artery is 62 cm/sec. This corresponds to a 20 to 39% proximal right ICA stenosis. Normal systolic velocities are noted in the proximal right external carotid artery. There is antegrade flow in the right vertebral artery. The peak systolic velocity in the proximal left internal carotid artery is 73cm/sec. This corresponds to a 20 to 39% proximal left ICA stenosis. Normal systolic velocities are noted in the proximal left external carotid artery. There is antegrade flow in the left vertebral artery. IMPRESSION: 1. Bilateral 20-39% proximal ICA stenoses. 2. Antegrade flow in both vertebral arteries.
[2016-12-19] MEDS: Pantoprazole 40 mg EC Tab PO SCH ×2 (08:04→16:47)
[2016-12-19] MEDS: Levothyroxine 25 MCG TAB PO SCH ×2 (08:04→08:09)
[2016-12-19 08:13] LABS: ADD MANUAL DIFF? NO
[2016-12-19 08:21] LABS: BASO # 0.01 K/mm3 (0.0-2.0); BASO % 0.2 % (0.0-3.0); EOS # 0.1 (0.0-0.7); EOS % 1.6 % (1.5-5.0); GRAN # 2.44 (1.4-6.5); GRAN % 57.1 % (50.0-68.0); HEMATOCRIT 37.8 % (36.0-48.0); LYMPH # 1.4 (1.2-3.4); LYMPH % 32.9 % (22.0-35.0); MEAN CELL VOLUME 84.6 fL (80.0-105.0); MEAN CORPUSCULAR HEMOGLOBIN 28.6 pg (25.0-35.0); MEAN CORPUSCULAR HGB CONC 33.9 g/dl (31.0-37.0); MONO # 0.4 (0.1-0.6); MONO % 8.2 % (1.0-6.0); PLATELET COUNT 191 10^3/uL (120.0-450.0); RED CELL DISTRIBUTION WIDTH 13.4 % (11.5-14.5); WHITE BLOOD COUNT 4.3 10^3/ul (4.5-11.0)
[2016-12-19 08:30] LABS: ALB/GLOB RATIO 1.1 (1.1-1.8); ALKALINE PHOSPHATASE 87 U/L (38-133); ALT/SGPT 26 U/L (7-56); AST/SGOT 18 U/L (15-39); BILIRUBIN,TOTAL 0.7 mg/dL (0.2-1.3); BLOOD UREA NITROGEN 12 mg/dL (7-21); CALCIUM 9.2 mg/dL (8.4-10.5); CARBON DIOXIDE 26 mmol/L (21-33); CHLORIDE 107 mmol/L (98-107); GFR AFRICAN-AMERICAN > 60; GLUCOSE,RANDOM 91 mg/dL (70-110); POTASSIUM 3.7 mmol/L (3.6-5.0); SODIUM 140 mmol/L (132-148); TOTAL PROTEIN 7.4 g/dL (5.8-8.3)
[2016-12-19] MEDS: Enoxaparin 40 mg Syringe SC SCH (09:03)
[2016-12-19] MEDS: cefTRIAXone 1 gm 100 ML IVPB SCH (09:03)
--- NOTE | 2016-12-19 09:07 | CP.PCM.PN ---
Subjective - Date & Time of Evaluation Date of Evaluation: 12/19/16 Time of Evaluation: 08:00 - Subjective Subjective: Stable on 2R. She feels better. Much less CP now. V/S noted PE: Lungs: clear Cor.: S1S2 Abd.: soft Ext.: no edema Neuro.: alert I/O = 980/1000 Labs noted: trops all neg. ECG 12/18: RSR, NSSTW changes Echo: Prelim>Nl LV. See report car U/S noted urine + GNR Neuro. Eval. noted Rib Xray: neg. Objective - Vital Signs/Intake and Output Vital Signs (last 24 hours): Temp Pulse Resp BP Pulse Ox 97.5 F L 72 19 140/78 96 12/19/16 06:00 12/19/16 06:00 12/19/16 06:00 12/19/16 06:00 12/19/16 06:00 Intake and Output: 12/19/16 12/19/16 06:59 18:59 Intake Total 120 Output Total 200 Balance -80 - Medications Medications: Current Medications Albuterol/Ipratropium (Duoneb 3 Mg/0.5 Mg (3 Ml) Ud) 3 ml IH [id number] PRN PRN Reason: Shortness of Breath Amlodipine Besylate (Norvasc) 5 mg PO DAILY PRN PRN Reason: Systolic Blood Pressure Last Admin: 12/18/16 17:24 Dose: 5 mg Enoxaparin Sodium (Lovenox) 40 mg SC DAILY [facility] PRN Reason: Protocol Last Admin: 12/18/16 09:33 Dose: 40 mg Ceftriaxone Sodium (Rocephin 1 Gram Ivpb) 100 mls @ 100 mls/hr IVPB DAILY [facility] PRN Reason: Protocol Last Admin: 12/18/16 09:32 Dose: 100 mls/hr Levothyroxine Sodium (Synthroid) 25 mcg PO ACB [facility] Last Admin: 12/19/16 08:09 Dose: Not Given Morphine Sulfate (Morphine) 2 mg IVP Q4H PRN PRN Reason: Pain, moderate (4-7) Oxycodone/Acetaminophen (Percocet 5/325 Mg Tab) 1 tab PO Q6H PRN PRN Reason: Pain, moderate (4-7) Stop: 12/20/16 21:30 Pantoprazole Sodium (Protonix Ec Tab) 40 mg PO 0730,1630 [facility] Last Admin: 12/19/16 08:04 Dose: 40 mg Valsartan (Diovan) 320 mg PO DAILY PRN PRN Reason: Systolic Blood Pressure Zolpidem Tartrate (Ambien) 10 mg PO HS PRN; Protocol PRN Reason: Insomnia Last Admin: 12/18/16 21:58 Dose: 10 mg - Labs Labs: 12/19/16 08:02 12/19/16 08:02 PT 11.0 Seconds (9.9-11.8) 12/17/16 17:45 INR 1.02 (0.93-1.08) 12/17/16 17:45 APTT 23.2 Seconds (23.7-30.8) L 12/17/16 17:45 Assessment and Plan - Assessment and Plan (Free Text) Plan: Assessment: Atypicasl CP/Left arm pain/MAGDALENO/Cervicogenic sxs. Cervical radiculopathy UTI Asthma HBP Hypothyroid Fibroid Uterus s/p hysterectomy Plan: As per neuro. Will check echo Out pt nuclear stress test if not done recently by her public health worker. OOB Home soon.
--- NOTE | 2016-12-19 13:28 | CP.PCM.DIS ---
<James Shaikh - Last Filed: 12/19/16 13:56> Provider - Provider Date of Admission: 12/17/16 19:48 Attending physician: Jessika Barney MD Primary care physician: Lorie Mckinney MD Consults: Neuro: Way[place] Cardio: [place] Time Spent in preparation of Discharge (in minutes): 45 Hospital Course - Lab Results Lab Results: Micro Results 12/17/16 20:30 Urine,Clean Catch Urine Culture - Preliminary Gram Negative Marco Gram Positive Cocci Most Recent Lab Values WBC 4.3 10^3/ul (4.5-11.0) L D 12/19/16 08:02 RBC 4.47 10^6/uL (3.5-6.1) 12/19/16 08:02 Hgb 12.8 gm/dL (12.0-16.0) 12/19/16 08:02 Hct 37.8 % (36.0-48.0) 12/19/16 08:02 MCV 84.6 fL (80.0-105.0) 12/19/16 08:02 MCH 28.6 pg (25.0-35.0) 12/19/16 08:02 MCHC 33.9 g/dl (31.0-37.0) 12/19/16 08:02 RDW 13.4 % (11.5-14.5) 12/19/16 08:02 Plt Count 191 10^3/uL (120.0-450.0) 12/19/16 08:02 MPV 11.0 fl (7.0-11.0) 12/19/16 08:02 Gran % 57.1 % (50.0-68.0) 12/19/16 08:02 Lymph % (Auto) 32.9 % (22.0-35.0) 12/19/16 08:02 [place] % (Auto) 8.2 % (1.0-6.0) H 12/19/16 08:02 Eos % (Auto) 1.6 % (1.5-5.0) 12/19/16 08:02 Baso % (Auto) 0.2 % (0.0-3.0) 12/19/16 08:02 Gran # 2.44 (1.4-6.5) 12/19/16 08:02 Lymph # 1.4 (1.2-3.4) 12/19/16 08:02 [place] # 0.4 (0.1-0.6) 12/19/16 08:02 Eos # 0.1 (0.0-0.7) 12/19/16 08:02 Baso # 0.01 K/mm3 (0.0-2.0) 12/19/16 08:02 PT 11.0 Seconds (9.9-11.8) 12/17/16 17:45 INR 1.02 (0.93-1.08) 12/17/16 17:45 APTT 23.2 Seconds (23.7-30.8) L 12/17/16 17:45 D-Dimer, Quantitative 0.25 mg/L FEU (0-0.50) 12/17/16 18:16 Sodium 140 mmol/L (132-148) 12/19/16 08:02 Potassium 3.7 mmol/L (3.6-5.0) 12/19/16 08:02 Chloride 107 mmol/L (98-107) 12/19/16 08:02 Carbon Dioxide 26 mmol/L (21-33) 12/19/16 08:02 Anion Gap 11 (10-20) 12/19/16 08:02 BUN 12 mg/dL (7-21) 12/19/16 08:02 Creatinine 0.8 mg/dL (0.5-1.4) 12/19/16 08:02 Est GFR ( Amer) > 60 12/19/16 08:02 Est GFR (Non-Af Amer) > 60 12/19/16 08:02 POC Glucose (mg/dL) 105 mg/dL (65-110) 12/19/16 11:26 Random Glucose 91 mg/dL (70-110) 12/19/16 08:02 Hemoglobin A1c 5.8 % (4.2-6.5) 12/18/16 06:30 Calcium 9.2 mg/dL (8.4-10.5) 12/19/16 08:02 Magnesium 1.8 mg/dL (1.7-2.2) 12/17/16 17:45 Total Bilirubin 0.7 mg/dL (0.2-1.3) 12/19/16 08:02 AST 18 U/L (15-39) 12/19/16 08:02 ALT 26 U/L (7-56) 12/19/16 08:02 Alkaline Phosphatase 87 U/L (38-133) 12/19/16 08:02 Lactate Dehydrogenase 444 U/L (333-699) 12/17/16 17:45 Total Creatine Kinase 86 U/L (35-230) 12/17/16 17:45 Troponin I < 0.01 ng/mL 12/18/16 06:30 NT-Pro-B Natriuret Pep 78.9 pg/mL (0-450) 12/17/16 17:45 Total Protein 7.4 g/dL (5.8-8.3) 12/19/16 08:02 Albumin 3.8 g/dL (3.0-4.8) 12/19/16 08:02 Globulin 3.6 gm/dL 12/19/16 08:02 Albumin/Globulin Ratio 1.1 (1.1-1.8) 12/19/16 08:02 Triglycerides 67 mg/dL (35-160) 12/18/16 06:30 Cholesterol 195 mg/dL (130-200) 12/18/16 06:30 LDL Cholesterol Direct 95 mg/dL (0-129) 12/18/16 06:30 HDL Cholesterol 70 mg/dL (29-60) H 12/18/16 06:30 Lipase 59 U/L (23-300) 12/18/16 06:30 TSH 3rd Generation 2.66 mIU/mL (0.46-4.68) 12/17/16 18:00 Urine Color Yellow (YELLOW) 12/17/16 20:10 Urine Appearance Cloudy (CLEAR) 12/17/16 20:10 Urine pH 6.0 (4.7-8.0) 12/17/16 20:10 Ur Specific [place] 1.025 (1.005-1.035) 12/17/16 20:10 Urine Protein Negative mg/dL (<30 mg/dL) 12/17/16 20:10 Urine Glucose (UA) Negative mg/dL (NEGATIVE) 12/17/16 20:10 Urine Ketones Negative mg/dL (NEGATIVE) 12/17/16 20:10 Urine Blood Small (NEGATIVE) H 12/17/16 20:10 Urine Nitrate Positive (NEGATIVE) H 12/17/16 20:10 Urine Bilirubin Negative (NEGATIVE) 12/17/16 20:10 Urine Urobilinogen 0.2 E.U./dL (<1 E.U./dL) 12/17/16 20:10 Ur Leukocyte Esterase Large Adrián/uL (NEGATIVE) H 12/17/16 20:10 Urine RBC 0 - 2 /hpf (0-2) 12/17/16 20:10 Urine WBC Tntc /hpf (0-6) 12/17/16 20:10 Ur Epithelial Cells 3 - 4 /hpf (0-5) 12/17/16 20:10 Urine Bacteria Many (NEG) 12/17/16 20:10 - Hospital Course Hospital Course: 61 F with PMHx of HTN, hypothyroidism, asthma, vertigo, levoscoliosis, and fibroids presents with complaints of left sided chest pains, left sided headache and left sided paresthesia. Pt is a poor historian. Pt states that while showering, she started to feel chest tightness - similair to when she has asthma attacks, worsening of her left sided headache, left sided paresthesia and associated sob and dizziness. However, after taking her nebulizer treatments her symptoms slowly improved. Pt then stated that this evening at approx 5 pm, she expereinced another episode of similar symptoms while waiting for the bus outside however with greater intensity than this morning, at which point she called the ambulance and arrived to [facility]. Pt states that for the past month she has been experiencing a left sided headache that fluctuates in intensity, however is constant. Pt was recently seen by her neurologist for which an MRI was completed on 12/13/16, pending results. Pt also states that she has been experiencing her chest pain for the past couple of weeks, shifting in position and pressing on the chest wall exacerbates symptoms. She denied any trauma. She has recently been flying back and forth from [place], last trip in the middle of november. At the time of examination pt denied fever, chills, blurry vision, diplopia, weakness, dizziness, sob, palpitations, abdominal pains, n/v/d /c or urinary symptoms. Pt admitted to left sided headache and left sided chest pain, however with a lesser intensity than earlier. Pt MRI shows Cervical herniation and stenosis. Pt was seen by Neurologist. Recommended Gabapentin and f/u outpt basis. Cardio also saw the pt. Echo showed 80% EF. Carotid US showed 20-40% ICA stenosis b/l. Trop was negative and EKG was NSR. cardiann recommended outpt stress test. UA showed UTI. Pt was given Ceftriaxone IV. Pt did well throughout the stay and cleared to go home by cardio and neuro. Pt is instructed to f/u with Neurologist, her conference concierge and her PMD. Discharge Exam - Head Exam Head Exam: ATRAUMATIC, NORMAL INSPECTION, NORMOCEPHALIC - Eye Exam Eye Exam: EOMI, Normal appearance, PERRL Pupil Exam: NORMAL ACCOMODATION, PERRL - Respiratory Exam Respiratory Exam: Clear to PA & Lateral, NORMAL BREATHING PATTERN, UNREMARKABLE - Cardiovascular Exam Cardiovascular Exam: REGULAR RHYTHM, +S1, +S2 - GI/Abdominal Exam GI & Abdominal Exam: Unremarkable. absent: Distended, Firm, Guarding, Hernia - Extremities Exam Extremities exam: full ROM - Psychiatric Exam Psychiatric exam: Normal Affect, Normal Mood - Skin Skin Exam: Dry, Intact, Normal Color, Warm Discharge Plan - Discharge Medications Prescriptions: amLODIPine [Norvasc] 5 mg PO DAILY #30 tab Cefdinir [Omnicef] 300 mg PO BID #20 cap Gabapentin 300 mg PO HS PRN #30 capsule PRN Reason: Pain, Moderate (4-7) Levothyroxine [Synthroid] 25 mcg PO ACB #30 tab Sulfamethoxazole/Trimethoprim [Bactrim 400-80 mg Tablet] 2 each PO Q12 #40 tablet Sulfamethoxazole/Trimethoprim [Bactrim 400-80 mg Tablet] 1 each PO BID #20 tablet - Follow Up Plan Condition: FAIR Disposition: HOME/ ROUTINE Instructions: Chest Pain (DC) Additional Instructions: Upon discharge, f/u with Neurologist, her conference concierge and her PMD. Patient is discharged with the following medications: Gabapentin 300 mg HS #30 tabs, Omnicef 300 mg BID #20 tabs, Norvasc 5 mg PO QD as needed for elevated blood pressure #30 tabs, Synthroid 35 mcg PO ACB #30. Scripts are sent to [facility] in [facility]. Referrals: Lorie Mckinney MD [Primary Care Provider] - Tyson Connors MD [Staff Provider] - Tito Zambrano MD [Staff Provider] - <Jessika Barney - Last Filed: 12/29/16 17:12> Provider - Provider Date of Admission: 12/17/16 19:48 Attending physician: Jessika Barney MD Primary care physician: Lorie Mckinney MD Hospital Course - Lab Results Lab Results: Micro Results 12/17/16 20:30 Urine,Clean Catch Urine Culture - Final Escherichia Coli Beta Hemolytic Strep Group B Most Recent Lab Values WBC 4.8 10^3/ul (4.5-11.0) 12/20/16 06:30 RBC 4.52 10^6/uL (3.5-6.1) 12/20/16 06:30 Hgb 13.0 gm/dL (12.0-16.0) 12/20/16 06:30 Hct 38.2 % (36.0-48.0) 12/20/16 06:30 MCV 84.5 fL (80.0-105.0) 12/20/16 06:30 MCH 28.8 pg (25.0-35.0) 12/20/16 06:30 MCHC 34.0 g/dl (31.0-37.0) 12/20/16 06:30 RDW 13.1 % (11.5-14.5) 12/20/16 06:30 Plt Count 192 10^3/uL (120.0-450.0) 12/20/16 06:30 MPV 11.1 fl (7.0-11.0) H 12/20/16 06:30 Gran % 55.5 % (50.0-68.0) 12/20/16 06:30 Lymph % (Auto) 30.9 % (22.0-35.0) 12/20/16 06:30 [place] % (Auto) 10.7 % (1.0-6.0) H 12/20/16 06:30 Eos % (Auto) 2.5 % (1.5-5.0) 12/20/16 06:30 Baso % (Auto) 0.4 % (0.0-3.0) 12/20/16 06:30 Gran # 2.64 (1.4-6.5) 12/20/16 06:30 Lymph # 1.5 (1.2-3.4) 12/20/16 06:30 [place] # 0.5 (0.1-0.6) 12/20/16 06:30 Eos # 0.1 (0.0-0.7) 12/20/16 06:30 Baso # 0.02 K/mm3 (0.0-2.0) 12/20/16 06:30 PT 11.0 Seconds (9.9-11.8) 12/17/16 17:45 INR 1.02 (0.93-1.08) 12/17/16 17:45 APTT 23.2 Seconds (23.7-30.8) L 12/17/16 17:45 D-Dimer, Quantitative 0.25 mg/L FEU (0-0.50) 12/17/16 18:16 Sodium 140 mmol/L (132-148) 12/20/16 06:30 Potassium 3.4 mmol/L (3.6-5.0) L 12/20/16 06:30 Chloride 103 mmol/L (98-107) 12/20/16 06:30 Carbon Dioxide 28 mmol/L (21-33) 12/20/16 06:30 Anion Gap 12 (10-20) 12/20/16 06:30 BUN 17 mg/dL (7-21) 12/20/16 06:30 Creatinine 0.8 mg/dL (0.5-1.4) 12/20/16 06:30 Est GFR ( Amer) > 60 12/20/16 06:30 Est GFR (Non-Af Amer) > 60 12/20/16 06:30 POC Glucose (mg/dL) 111 mg/dL (65-110) H 12/20/16 17:33 Random Glucose 85 mg/dL (70-110) 12/20/16 06:30 Hemoglobin A1c 5.8 % (4.2-6.5) 12/18/16 06:30 Calcium 9.3 mg/dL (8.4-10.5) 12/20/16 06:30 Magnesium 1.8 mg/dL (1.7-2.2) 12/17/16 17:45 Total Bilirubin 0.6 mg/dL (0.2-1.3) 12/20/16 06:30 AST 17 U/L (15-39) 12/20/16 06:30 ALT 30 U/L (7-56) 12/20/16 06:30 Alkaline Phosphatase 88 U/L (38-133) 12/20/16 06:30 Lactate Dehydrogenase 444 U/L (333-699) 12/17/16 17:45 Total Creatine Kinase 86 U/L (35-230) 12/17/16 17:45 Troponin I < 0.01 ng/mL 12/18/16 06:30 NT-Pro-B Natriuret Pep 78.9 pg/mL (0-450) 12/17/16 17:45 Total Protein 7.4 g/dL (5.8-8.3) 12/20/16 06:30 Albumin 3.8 g/dL (3.0-4.8) 12/20/16 06:30 Globulin 3.6 gm/dL 12/20/16 06:30 Albumin/Globulin Ratio 1.1 (1.1-1.8) 12/20/16 06:30 Triglycerides 67 mg/dL (35-160) 12/18/16 06:30 Cholesterol 195 mg/dL (130-200) 12/18/16 06:30 LDL Cholesterol Direct 95 mg/dL (0-129) 12/18/16 06:30 HDL Cholesterol 70 mg/dL (29-60) H 12/18/16 06:30 Lipase 59 U/L (23-300) 12/18/16 06:30 TSH 3rd Generation 2.66 mIU/mL (0.46-4.68) 12/17/16 18:00 Urine Color Yellow (YELLOW) 12/17/16 20:10 Urine Appearance Cloudy (CLEAR) 12/17/16 20:10 Urine pH 6.0 (4.7-8.0) 12/17/16 20:10 Ur Specific [place] 1.025 (1.005-1.035) 12/17/16 20:10 Urine Protein Negative mg/dL (<30 mg/dL) 12/17/16 20:10 Urine Glucose (UA) Negative mg/dL (NEGATIVE) 12/17/16 20:10 Urine Ketones Negative mg/dL (NEGATIVE) 12/17/16 20:10 Urine Blood Small (NEGATIVE) H 12/17/16 20:10 Urine Nitrate Positive (NEGATIVE) H 12/17/16 20:10 Urine Bilirubin Negative (NEGATIVE) 12/17/16 20:10 Urine Urobilinogen 0.2 E.U./dL (<1 E.U./dL) 12/17/16 20:10 Ur Leukocyte Esterase Large Adrián/uL (NEGATIVE) H 12/17/16 20:10 Urine RBC 0 - 2 /hpf (0-2) 12/17/16 20:10 Urine WBC Tntc /hpf (0-6) 12/17/16 20:10 Ur Epithelial Cells 3 - 4 /hpf (0-5) 12/17/16 20:10 Urine Bacteria Many (NEG) 12/17/16 20:10 Attending/Attestation - Attestation I have personally seen and examined this patient.: Yes I have fully participated in the care of the patient.: Yes I have reviewed all pertinent clinical information, including history, physical exam and plan: Yes Notes (Text): Hold discharge as urine culture is negative.
--- NOTE | 2016-12-19 16:14 | CP.PCM.PN ---
<James Shaikh - Last Filed: 12/19/16 16:10> Subjective - Date & Time of Evaluation Date of Evaluation: 12/19/16 Time of Evaluation: 16:10 - Subjective Subjective: Pt s&e w attending. Pt feeling ok. Still mild L arm numbness and CP reporducible but better. C/O weakness. Denies F/C/V/D/SOB. + amb, + void, PO rashel Objective - Vital Signs/Intake and Output Vital Signs (last 24 hours): Temp Pulse Resp BP Pulse Ox 97.8 F 48 L 16 137/96 H 96 12/19/16 11:58 12/19/16 14:00 12/19/16 11:58 12/19/16 11:58 12/19/16 06:00 Intake and Output: 12/19/16 12/19/16 06:59 18:59 Intake Total 120 840 Output Total 200 1900 Balance -80 -1060 - Medications Medications: Current Medications Albuterol/Ipratropium (Duoneb 3 Mg/0.5 Mg (3 Ml) Ud) 3 ml IH [id number] PRN PRN Reason: Shortness of Breath Amlodipine Besylate (Norvasc) 5 mg PO DAILY PRN PRN Reason: Systolic Blood Pressure Last Admin: 12/18/16 17:24 Dose: 5 mg Enoxaparin Sodium (Lovenox) 40 mg SC DAILY [facility] PRN Reason: Protocol Last Admin: 12/19/16 09:03 Dose: 40 mg Ceftriaxone Sodium (Rocephin 1 Gram Ivpb) 100 mls @ 100 mls/hr IVPB DAILY [facility] PRN Reason: Protocol Last Admin: 12/19/16 09:03 Dose: 100 mls/hr Levothyroxine Sodium (Synthroid) 25 mcg PO ACB [facility] Last Admin: 12/19/16 08:09 Dose: Not Given Morphine Sulfate (Morphine) 2 mg IVP Q4H PRN PRN Reason: Pain, moderate (4-7) Oxycodone/Acetaminophen (Percocet 5/325 Mg Tab) 1 tab PO Q6H PRN PRN Reason: Pain, moderate (4-7) Stop: 12/20/16 21:30 Pantoprazole Sodium (Protonix Ec Tab) 40 mg PO 0730,1630 [facility] Last Admin: 12/19/16 08:04 Dose: 40 mg Valsartan (Diovan) 320 mg PO DAILY PRN PRN Reason: Systolic Blood Pressure Zolpidem Tartrate (Ambien) 10 mg PO HS PRN; Protocol PRN Reason: Insomnia Last Admin: 12/18/16 21:58 Dose: 10 mg - Labs Labs: 12/19/16 08:02 12/19/16 08:02 PT 11.0 Seconds (9.9-11.8) 12/17/16 17:45 INR 1.02 (0.93-1.08) 12/17/16 17:45 APTT 23.2 Seconds (23.7-30.8) L 12/17/16 17:45 - Constitutional Appears: No Acute Distress - Head Exam Head Exam: ATRAUMATIC, NORMAL INSPECTION, NORMOCEPHALIC - Eye Exam Eye Exam: EOMI, Normal appearance, PERRL Pupil Exam: NORMAL ACCOMODATION, PERRL - ENT Exam ENT Exam: Mucous Membranes Moist, Normal Exam - Neck Exam Neck Exam: Full ROM, Normal Inspection. absent: Lymphadenopathy - Respiratory Exam Respiratory Exam: Clear to Ausculation Bilateral, NORMAL BREATHING PATTERN - Cardiovascular Exam Cardiovascular Exam: REGULAR RHYTHM, +S1, +S2. absent: Murmur - GI/Abdominal Exam GI & Abdominal Exam: Soft, Normal Bowel Sounds. absent: Distended, Firm, Guarding, Rigid, Tenderness - Extremities Exam Extremities Exam: Full ROM, Normal Capillary Refill, Normal Inspection. absent : Joint Swelling, Pedal Edema - Back Exam Back Exam: NORMAL INSPECTION - Neurological Exam Neurological Exam: Alert, Awake, CN II-XII Intact, Normal Gait, Oriented x3 - Psychiatric Exam Psychiatric exam: Normal Affect, Normal Mood - Skin Skin Exam: Dry, Intact, Normal Color, Warm Assessment and Plan - Assessment and Plan (Free Text) Assessment: 61 F with PMHx hypothyroidism, HTN, and asthma presenting with complaints of left sided paresthesias, left sided headache, left sided chest pains. Admitted to r/o acs vs tia vs cva. 1. Left sided chest pain - r/o acs - Trop negative x3, EKG: NSR w/ PACs, serial trops and serial EKGs - TTP, Rib Xray: no acute finding - nitro in ED without relief, asa allergy, morphine improved symptom intensity - Cardiology Consulted, Dr. Zambrano: recommeds out pt stress test 2. Left sided Gan/Paresthesia - no neurological deficits - MRI 12/13/16: cervical stenosis, cervical disk herniation - CTH negative - Neurology consulted, Dr. Connors: recommended Gabapentin 300mg daily - Neurocheck q4 3. Asthma - Currently stable - Continue home meds - Duonebs q6 prn - no wheezing on exam 4. UTI - UCx : GNR, GP Cocci - Rocephine - Continue to monitor 5. HTN - Currently stable - continue home meds: norvasc 5mg BID, Valsartan - continue to monitor 6. Hypothyroidism - TSH - Continue home meds :synthroid 25 mcg 7. GI DVT ppx LVX Dispo: Likely DC tomorrow w ABX when Final Urine Cx w sensitivity returns. seen reviewed and discussed with attending <Jessika Barney - Last Filed: 12/29/16 17:10> Objective - Vital Signs/Intake and Output Vital Signs (last 24 hours): Temp Pulse Resp BP Pulse Ox 97.8 F 53 L 20 181/96 H 95 12/20/16 18:00 12/20/16 18:00 12/20/16 18:00 12/20/16 18:00 12/20/16 06:00 - Labs Labs: 12/20/16 06:30 12/20/16 06:30 PT 11.0 Seconds (9.9-11.8) 12/17/16 17:45 INR 1.02 (0.93-1.08) 12/17/16 17:45 APTT 23.2 Seconds (23.7-30.8) L 12/17/16 17:45 Attending/Attestation - Attestation I have personally seen and examined this patient.: Yes I have fully participated in the care of the patient.: Yes I have reviewed all pertinent clinical information, including history, physical exam and plan: Yes Notes (Text): I have seen and examined patient at bedside. This is 61 year old female with history of hypothyroidism, HTN, asthma who got admitted for evaluation of left sided chest pain, paresthesias, headache and near syncope. Serial troponin are negative. EKG did not show any ischemic changes. Rib xray is negative. Echo is normal. Stress test as an outpatient recommended by inhalation therapist. Patient reported that on the day of admission, she was outside and weather was warm, she was diaphoretic and started to develop chest pain, headache and paresthesias. Orthostatic VS still pending. It appears that all this can be secondary to vasovagal episode. Patient had an MRI in Dr Lopez's office. Carotid ultrasound pending. Continue rocephin for UTI. Urine culture pending. Continue antihypertensives and synthroid. Dr Jessika Barney
[2016-12-20 02:48] VITALS: RESP 20
[2016-12-20 06:07] VITALS: O2SAT 95
--- NOTE | 2016-12-20 06:41 | CARD ---
APPROVED REPORT EXAM: Two-dimensional and M-mode echocardiogram with Doppler and color Doppler. INDICATION Chest Pain 2D DIMENSIONS Left Atrium (2D)3.9 (1.6-4.0cm)IVSd1.2 (0.7-1.1cm) LVDd4.6 (3.9-5.9cm)PWd1.0 (0.7-1.1cm) LVDs2.7 (2.5-4.0cm)FS (%) 42.0 % LVEF (%)73.0 (>50%) M-Mode DIMENSIONS Aortic Root3.00 (2.2-3.7cm)Aortic Cusp Exc.1.20 (1.5-2.0cm) Aortic Valve AoV Peak Vjvfieoo183.0cm/s Mitral Valve MV E Xqqmejhs49.0cm/sMV A Asozhggb83.6cm/sE/A ratio1.2 TDI E/Lateral E'0.0E/Medial E'0.0 Tricuspid Valve TR Peak Enrrjqls287bo/sRAP [id number] Peak Gr.18mmHg [id number] LEFT VENTRICLE The left ventricle is normal size. There is normal left ventricular wall thickness. The left ventricular function is normal. The left ventricular ejection fraction is within the normal range. There is normal LV segmental wall motion. RIGHT VENTRICLE The right ventricle is normal size. ATRIA The left atrium size is normal. The right atrium size is normal. The interatrial septum is intact with no evidence for an atrial septal defect. AORTIC VALVE The aortic valve is normal in structure. MITRAL VALVE The mitral valve is normal in structure. Mitral regurgitation is trace to mild. TRICUSPID VALVE The tricuspid valve is normal in structure. There is trace tricuspid regurgitation. PULMONIC VALVE The pulmonary valve is normal in structure. GREAT VESSELS The aortic root is normal in size. PERICARDIAL EFFUSION There is no pleural effusion. <Conclusion> The left ventricle is normal size. There is normal left ventricular wall thickness. The left ventricular function is normal.
[2016-12-20] MEDS: Pantoprazole 40 mg EC Tab PO SCH ×2 (07:10→16:15)
[2016-12-20] MEDS: Levothyroxine 25 MCG TAB PO SCH (07:10)
[2016-12-20 07:24] LABS: ADD MANUAL DIFF? NO
[2016-12-20 07:28] LABS: BASO # 0.02 K/mm3 (0.0-2.0); BASO % 0.4 % (0.0-3.0); EOS # 0.1 (0.0-0.7); EOS % 2.5 % (1.5-5.0); GRAN # 2.64 (1.4-6.5); GRAN % 55.5 % (50.0-68.0); HEMATOCRIT 38.2 % (36.0-48.0); LYMPH # 1.5 (1.2-3.4); LYMPH % 30.9 % (22.0-35.0); MEAN CELL VOLUME 84.5 fL (80.0-105.0); MEAN CORPUSCULAR HEMOGLOBIN 28.8 pg (25.0-35.0); MEAN PLATELET VOLUME 11.1 fl (7.0-11.0); MONO # 0.5 (0.1-0.6); MONO % 10.7 % (1.0-6.0); PLATELET COUNT 192 10^3/uL (120.0-450.0); RED CELL DISTRIBUTION WIDTH 13.1 % (11.5-14.5); WHITE BLOOD COUNT 4.8 10^3/ul (4.5-11.0)
[2016-12-20 07:53] LABS: ALB/GLOB RATIO 1.1 (1.1-1.8); ALKALINE PHOSPHATASE 88 U/L (38-133); ALT/SGPT 30 U/L (7-56); AST/SGOT 17 U/L (15-39); BILIRUBIN,TOTAL 0.6 mg/dL (0.2-1.3); BLOOD UREA NITROGEN 17 mg/dL (7-21); CALCIUM 9.3 mg/dL (8.4-10.5); CARBON DIOXIDE 28 mmol/L (21-33); CHLORIDE 103 mmol/L (98-107); GFR AFRICAN-AMERICAN > 60; GLUCOSE,RANDOM 85 mg/dL (70-110); POTASSIUM 3.4 mmol/L (3.6-5.0); SODIUM 140 mmol/L (132-148); TOTAL PROTEIN 7.4 g/dL (5.8-8.3)
[2016-12-20] MEDS ORDERED: Potassium Chloride 20 mEq ER Tab PO ONE (09:05)
[2016-12-20] MEDS: cefTRIAXone 1 gm 100 ML IVPB SCH (09:18)
[2016-12-20] MEDS: Enoxaparin 40 mg Syringe SC SCH (09:19)
[2016-12-20 15:55] VITALS: PULSE 53
--- NOTE | 2016-12-20 18:22 | CP.PCM.DIS ---
<[place] - Last Filed: 12/20/16 18:18> Provider - Provider Date of Admission: 12/19/16 17:00 Attending physician: Jessika Barney MD Primary care physician: Lorie Mckinney MD Consults: Cardio: Dr. Zambrano Neuro: Dr. Mellisa Connors Time Spent in preparation of Discharge (in minutes): 45 Diagnosis - Discharge Diagnosis (1) Hypertension Status: h (2) UTI (urinary tract infection) Status: c (3) Asthma Status: h Hospital Course - Lab Results Lab Results: Most Recent Lab Values WBC 4.8 10^3/ul (4.5-11.0) 12/20/16 06:30 RBC 4.52 10^6/uL (3.5-6.1) 12/20/16 06:30 Hgb 13.0 gm/dL (12.0-16.0) 12/20/16 06:30 Hct 38.2 % (36.0-48.0) 12/20/16 06:30 MCV 84.5 fL (80.0-105.0) 12/20/16 06:30 MCH 28.8 pg (25.0-35.0) 12/20/16 06:30 MCHC 34.0 g/dl (31.0-37.0) 12/20/16 06:30 RDW 13.1 % (11.5-14.5) 12/20/16 06:30 Plt Count 192 10^3/uL (120.0-450.0) 12/20/16 06:30 MPV 11.1 fl (7.0-11.0) H 12/20/16 06:30 Gran % 55.5 % (50.0-68.0) 12/20/16 06:30 Lymph % (Auto) 30.9 % (22.0-35.0) 12/20/16 06:30 [place] % (Auto) 10.7 % (1.0-6.0) H 12/20/16 06:30 Eos % (Auto) 2.5 % (1.5-5.0) 12/20/16 06:30 Baso % (Auto) 0.4 % (0.0-3.0) 12/20/16 06:30 Gran # 2.64 (1.4-6.5) 12/20/16 06:30 Lymph # 1.5 (1.2-3.4) 12/20/16 06:30 [place] # 0.5 (0.1-0.6) 12/20/16 06:30 Eos # 0.1 (0.0-0.7) 12/20/16 06:30 Baso # 0.02 K/mm3 (0.0-2.0) 12/20/16 06:30 PT 11.0 Seconds (9.9-11.8) 12/17/16 17:45 INR 1.02 (0.93-1.08) 12/17/16 17:45 APTT 23.2 Seconds (23.7-30.8) L 12/17/16 17:45 D-Dimer, Quantitative 0.25 mg/L FEU (0-0.50) 12/17/16 18:16 Sodium 140 mmol/L (132-148) 12/20/16 06:30 Potassium 3.4 mmol/L (3.6-5.0) L 12/20/16 06:30 Chloride 103 mmol/L (98-107) 12/20/16 06:30 Carbon Dioxide 28 mmol/L (21-33) 12/20/16 06:30 Anion Gap 12 (10-20) 12/20/16 06:30 BUN 17 mg/dL (7-21) 12/20/16 06:30 Creatinine 0.8 mg/dL (0.5-1.4) 12/20/16 06:30 Est GFR ( Amer) > 60 12/20/16 06:30 Est GFR (Non-Af Amer) > 60 12/20/16 06:30 POC Glucose (mg/dL) 95 mg/dL (65-110) 12/20/16 11:53 Random Glucose 85 mg/dL (70-110) 12/20/16 06:30 Hemoglobin A1c 5.8 % (4.2-6.5) 12/18/16 06:30 Calcium 9.3 mg/dL (8.4-10.5) 12/20/16 06:30 Magnesium 1.8 mg/dL (1.7-2.2) 12/17/16 17:45 Total Bilirubin 0.6 mg/dL (0.2-1.3) 12/20/16 06:30 AST 17 U/L (15-39) 12/20/16 06:30 ALT 30 U/L (7-56) 12/20/16 06:30 Alkaline Phosphatase 88 U/L (38-133) 12/20/16 06:30 Lactate Dehydrogenase 444 U/L (333-699) 12/17/16 17:45 Total Creatine Kinase 86 U/L (35-230) 12/17/16 17:45 Troponin I < 0.01 ng/mL 12/18/16 06:30 NT-Pro-B Natriuret Pep 78.9 pg/mL (0-450) 12/17/16 17:45 Total Protein 7.4 g/dL (5.8-8.3) 12/20/16 06:30 Albumin 3.8 g/dL (3.0-4.8) 12/20/16 06:30 Globulin 3.6 gm/dL 12/20/16 06:30 Albumin/Globulin Ratio 1.1 (1.1-1.8) 12/20/16 06:30 Triglycerides 67 mg/dL (35-160) 12/18/16 06:30 Cholesterol 195 mg/dL (130-200) 12/18/16 06:30 LDL Cholesterol Direct 95 mg/dL (0-129) 12/18/16 06:30 HDL Cholesterol 70 mg/dL (29-60) H 12/18/16 06:30 Lipase 59 U/L (23-300) 12/18/16 06:30 TSH 3rd Generation 2.66 mIU/mL (0.46-4.68) 12/17/16 18:00 Urine Color Yellow (YELLOW) 12/17/16 20:10 Urine Appearance Cloudy (CLEAR) 12/17/16 20:10 Urine pH 6.0 (4.7-8.0) 12/17/16 20:10 Ur Specific [facility] 1.025 (1.005-1.035) 12/17/16 20:10 Urine Protein Negative mg/dL (<30 mg/dL) 12/17/16 20:10 Urine Glucose (UA) Negative mg/dL (NEGATIVE) 12/17/16 20:10 Urine Ketones Negative mg/dL (NEGATIVE) 12/17/16 20:10 Urine Blood Small (NEGATIVE) H 12/17/16 20:10 Urine Nitrate Positive (NEGATIVE) H 12/17/16 20:10 Urine Bilirubin Negative (NEGATIVE) 12/17/16 20:10 Urine Urobilinogen 0.2 E.U./dL (<1 E.U./dL) 12/17/16 20:10 Ur Leukocyte Esterase Large Adrián/uL (NEGATIVE) H 12/17/16 20:10 Urine RBC 0 - 2 /hpf (0-2) 12/17/16 20:10 Urine WBC Tntc /hpf (0-6) 12/17/16 20:10 Ur Epithelial Cells 3 - 4 /hpf (0-5) 12/17/16 20:10 Urine Bacteria Many (NEG) 12/17/16 20:10 - Hospital Course Hospital Course: 61 F with PMHx of HTN, hypothyroidism, asthma, vertigo, levoscoliosis, and fibroids presents with complaints of left sided chest pains, left sided headache and left sided paresthesia. Pt is a poor historian. Pt states that while showering, she started to feel chest tightness - similair to when she has asthma attacks, worsening of her left sided headache, left sided paresthesia and associated sob and dizziness. However, after taking her nebulizer treatments her symptoms slowly improved. Pt then stated that this evening at approx 5 pm, she expereinced another episode of similar symptoms while waiting for the bus outside however with greater intensity than this morning, at which point she called the ambulance and arrived to [facility]. Pt states that for the past month she has been experiencing a left sided headache that fluctuates in intensity, however is constant. Pt was recently seen by her neurologist for which an MRI was completed on 12/13/16, pending results. Pt also states that she has been experiencing her chest pain for the past couple of weeks, shifting in position and pressing on the chest wall exacerbates symptoms. She denied any trauma. She has recently been flying back and forth from [place], last trip in the middle of november. At the time of examination pt denied fever, chills, blurry vision, diplopia, weakness, dizziness, sob, palpitations, abdominal pains, n/v/d /c or urinary symptoms. Pt admitted to left sided headache and left sided chest pain, however with a lesser intensity than earlier. Pt MRI shows Cervical herniation and stenosis. Pt was seen by Neurologist. Recommended Gabapentin and f/u outpt basis. Cardio also saw the pt. Echo showed 80% EF. Carotid US showed 20-40% ICA stenosis b/l. Trop was negative and EKG was NSR. neville recommended outpt stress test. UA showed UTI. Pt was given Ceftriaxone IV. Pt did well throughout the stay and cleared to go home by cardio and neuro. Pt is instructed to f/u with Neurologist, her fixed income director and her PMD. Upon discharge, f/u with Neurologist, her fixed income director and her PMD. Patient is discharged with the following medications: Gabapentin 300 mg HS #30 tabs, Omnicef 300 mg BID #20 tabs, Norvasc 5 mg PO QD as needed for elevated blood pressure #30 tabs, Synthroid 35 mcg PO ACB #30. Scripts are sent to [facility] in [facility]. For more details, please see MAR - Date & Time of H&P Date of H&P: 12/20/16 Time of H&P: 18:20 Discharge Exam - Head Exam Head Exam: ATRAUMATIC, NORMAL INSPECTION, NORMOCEPHALIC - ENT Exam ENT Exam: Mucous Membranes Moist - Respiratory Exam Respiratory Exam: Clear to PA & Lateral. absent: Rales, Rhonchi, Wheezes - Cardiovascular Exam Cardiovascular Exam: REGULAR RHYTHM, +S1, +S2. absent: Diastolic murmur, Gallop , Rubs, Systolic Murmur - GI/Abdominal Exam GI & Abdominal Exam: Normal Bowel Sounds, Soft, Unremarkable. absent: Diminished Bowel Sounds, Distended, Firm, Guarding, Hernia, Tenderness - Extremities Exam Additional comments: no edema or tenderness - Neurological Exam Neurological exam: Alert, Oriented x3 Additional comments: pt is sitting up in bed and was walking around room without difficulty and denies having any dizziness - Psychiatric Exam Psychiatric exam: Normal Affect, Normal Mood - Skin Skin Exam: Dry, Intact, Normal Color, Warm Discharge Plan - Discharge Medications Prescriptions: amLODIPine [Norvasc] 5 mg PO DAILY #30 tab Cefdinir [Omnicef] 300 mg PO BID #20 cap Gabapentin 300 mg PO HS PRN #30 capsule PRN Reason: Pain, Moderate (4-7) Levothyroxine [Synthroid] 25 mcg PO ACB #30 tab Sulfamethoxazole/Trimethoprim [Bactrim 400-80 mg Tablet] 2 each PO Q12 #40 tablet Sulfamethoxazole/Trimethoprim [Bactrim 400-80 mg Tablet] 1 each PO BID #20 tablet - Follow Up Plan Condition: FAIR Disposition: HOME/ ROUTINE Instructions: Chest Pain (DC) Additional Instructions: Upon discharge, f/u with Neurologist, her fixed income director and her PMD. Patient is discharged with the following medications: Gabapentin 300 mg HS #30 tabs, Omnicef 300 mg BID #20 tabs, Norvasc 5 mg PO QD as needed for elevated blood pressure #30 tabs, Synthroid 35 mcg PO ACB #30. Scripts are sent to [facility] in [facility]. Referrals: Lorie Mckinney MD [Primary Care Provider] - Tito Zambrano MD [Staff Provider] - Tyson Connors MD [Staff Provider] - <Jessika Barney - Last Filed: 12/29/16 17:23> Provider - Provider Date of Admission: 12/17/16 19:48 Attending physician: Jessika Barney MD Primary care physician: Lorie Mckinney MD Hospital Course - Lab Results Lab Results: Micro Results 12/17/16 20:30 Urine,Clean Catch Urine Culture - Final Escherichia Coli Beta Hemolytic Strep Group B Most Recent Lab Values WBC 4.8 10^3/ul (4.5-11.0) 12/20/16 06:30 RBC 4.52 10^6/uL (3.5-6.1) 12/20/16 06:30 Hgb 13.0 gm/dL (12.0-16.0) 12/20/16 06:30 Hct 38.2 % (36.0-48.0) 12/20/16 06:30 MCV 84.5 fL (80.0-105.0) 12/20/16 06:30 MCH 28.8 pg (25.0-35.0) 12/20/16 06:30 MCHC 34.0 g/dl (31.0-37.0) 12/20/16 06:30 RDW 13.1 % (11.5-14.5) 12/20/16 06:30 Plt Count 192 10^3/uL (120.0-450.0) 12/20/16 06:30 MPV 11.1 fl (7.0-11.0) H 12/20/16 06:30 Gran % 55.5 % (50.0-68.0) 12/20/16 06:30 Lymph % (Auto) 30.9 % (22.0-35.0) 12/20/16 06:30 [place] % (Auto) 10.7 % (1.0-6.0) H 12/20/16 06:30 Eos % (Auto) 2.5 % (1.5-5.0) 12/20/16 06:30 Baso % (Auto) 0.4 % (0.0-3.0) 12/20/16 06:30 Gran # 2.64 (1.4-6.5) 12/20/16 06:30 Lymph # 1.5 (1.2-3.4) 12/20/16 06:30 [place] # 0.5 (0.1-0.6) 12/20/16 06:30 Eos # 0.1 (0.0-0.7) 12/20/16 06:30 Baso # 0.02 K/mm3 (0.0-2.0) 12/20/16 06:30 PT 11.0 Seconds (9.9-11.8) 12/17/16 17:45 INR 1.02 (0.93-1.08) 12/17/16 17:45 APTT 23.2 Seconds (23.7-30.8) L 12/17/16 17:45 D-Dimer, Quantitative 0.25 mg/L FEU (0-0.50) 12/17/16 18:16 Sodium 140 mmol/L (132-148) 12/20/16 06:30 Potassium 3.4 mmol/L (3.6-5.0) L 12/20/16 06:30 Chloride 103 mmol/L (98-107) 12/20/16 06:30 Carbon Dioxide 28 mmol/L (21-33) 12/20/16 06:30 Anion Gap 12 (10-20) 12/20/16 06:30 BUN 17 mg/dL (7-21) 12/20/16 06:30 Creatinine 0.8 mg/dL (0.5-1.4) 12/20/16 06:30 Est GFR ( Amer) > 60 12/20/16 06:30 Est GFR (Non-Af Amer) > 60 12/20/16 06:30 POC Glucose (mg/dL) 111 mg/dL (65-110) H 12/20/16 17:33 Random Glucose 85 mg/dL (70-110) 12/20/16 06:30 Hemoglobin A1c 5.8 % (4.2-6.5) 12/18/16 06:30 Calcium 9.3 mg/dL (8.4-10.5) 12/20/16 06:30 Magnesium 1.8 mg/dL (1.7-2.2) 12/17/16 17:45 Total Bilirubin 0.6 mg/dL (0.2-1.3) 12/20/16 06:30 AST 17 U/L (15-39) 12/20/16 06:30 ALT 30 U/L (7-56) 12/20/16 06:30 Alkaline Phosphatase 88 U/L (38-133) 12/20/16 06:30 Lactate Dehydrogenase 444 U/L (333-699) 12/17/16 17:45 Total Creatine Kinase 86 U/L (35-230) 12/17/16 17:45 Troponin I < 0.01 ng/mL 12/18/16 06:30 NT-Pro-B Natriuret Pep 78.9 pg/mL (0-450) 12/17/16 17:45 Total Protein 7.4 g/dL (5.8-8.3) 12/20/16 06:30 Albumin 3.8 g/dL (3.0-4.8) 12/20/16 06:30 Globulin 3.6 gm/dL 12/20/16 06:30 Albumin/Globulin Ratio 1.1 (1.1-1.8) 12/20/16 06:30 Triglycerides 67 mg/dL (35-160) 12/18/16 06:30 Cholesterol 195 mg/dL (130-200) 12/18/16 06:30 LDL Cholesterol Direct 95 mg/dL (0-129) 12/18/16 06:30 HDL Cholesterol 70 mg/dL (29-60) H 12/18/16 06:30 Lipase 59 U/L (23-300) 12/18/16 06:30 TSH 3rd Generation 2.66 mIU/mL (0.46-4.68) 12/17/16 18:00 Urine Color Yellow (YELLOW) 12/17/16 20:10 Urine Appearance Cloudy (CLEAR) 12/17/16 20:10 Urine pH 6.0 (4.7-8.0) 12/17/16 20:10 Ur Specific [facility] 1.025 (1.005-1.035) 12/17/16 20:10 Urine Protein Negative mg/dL (<30 mg/dL) 12/17/16 20:10 Urine Glucose (UA) Negative mg/dL (NEGATIVE) 12/17/16 20:10 Urine Ketones Negative mg/dL (NEGATIVE) 12/17/16 20:10 Urine Blood Small (NEGATIVE) H 12/17/16 20:10 Urine Nitrate Positive (NEGATIVE) H 12/17/16 20:10 Urine Bilirubin Negative (NEGATIVE) 12/17/16 20:10 Urine Urobilinogen 0.2 E.U./dL (<1 E.U./dL) 12/17/16 20:10 Ur Leukocyte Esterase Large Adrián/uL (NEGATIVE) H 12/17/16 20:10 Urine RBC 0 - 2 /hpf (0-2) 12/17/16 20:10 Urine WBC Tntc /hpf (0-6) 12/17/16 20:10 Ur Epithelial Cells 3 - 4 /hpf (0-5) 12/17/16 20:10 Urine Bacteria Many (NEG) 12/17/16 20:10 Attending/Attestation - Attestation I have personally seen and examined this patient.: Yes I have fully participated in the care of the patient.: Yes I have reviewed all pertinent clinical information, including history, physical exam and plan: Yes Notes (Text): I have seen and examined patient at bedside. This is 61 year old female with history of hypothyroidism, HTN, asthma who got admitted for evaluation of left sided chest pain, paresthesias, headache and near syncope. Serial troponin are negative. EKG did not show any ischemic changes. Rib xray is negative. Echo is normal. Stress test as an outpatient recommended by fixed income director. Patient reported that on the day of admission, she was outside and weather was warm, she was diaphoretic and started to develop chest pain, headache and paresthesias. Orthostatic VS still pending. It appears that all this can be secondary to vasovagal episode. Patient had an MRI in Dr Lopez's office. Carotid ultrasound showed 20-40% stenosis. She was sent home on omnicef. Continue antihypertensives and synthroid. Dr Jessika Barney
[2016-12-20 19:27] VITALS: BP 181/96; TEMP 97.8
== END 2016-12-20 20:00 | disposition home or self-care (01) ==
LOC: ED 17:48 → ERH 19:48 → MERGE 19:48 → ERH 21:11 → 2RNO 23:28 → OBSVTOIN 12-18 11:46 → INTOOBSV 12-18 11:46 → OBSVTOIN 12-19 17:00
PROVIDERS: ADMIT Internal Medicine; ATTEND Hospitalist
DX: M41.9 Scoliosis, unspecified (principal); R07.89 Other chest pain; E86.0 Dehydration; J45.909 Unspecified asthma, uncomplicated; N39.0 Urinary tract infection, site not specified; I10 Essential (primary) hypertension; M50.122 Cervical disc disorder at C5-C6 level with radiculopathy; E03.9 Hypothyroidism, unspecified; I65.23 Occlusion and stenosis of bilateral carotid arteries; R20.9 Unspecified disturbances of skin sensation; M79.602 Pain in left arm; Z90.710 Acquired absence of both cervix and uterus; Z88.6 Allergy status to analgesic agent; Z80.0 Family history of malignant neoplasm of digestive organs; Z82.0 Family history of epilepsy and other diseases of the nervous system; Z82.3 Family history of stroke
CPT/HCPCS: 36415; 70450; 71010; 71100; 80053; 80061; 81001; 82550; 82948; 83036; 83615; 83690; 83735; 83880; 84443; 84484; 85025; 85378; 85610; 85730; 87086; 87181; 93005; 93306; 93880; 96374; 97116; 97162; 99285; G0378; G8978; G8979; G8980; J0696; J1650; J2270; J7040